=== PATIENT | male | born 1975 | race Caucasian/White ===

== ENCOUNTER 2017-08-16 17:00 | Emergency (ER) | payer SELFPAY ==
[~2017-08-16] VITALS: Ht 172.7 cm; Wt 84.0 kg
[~2017-08-16 17:00] MED LIST: ALBUTEROL17 GM IH; FLEXERIL10 MG PO; HYDROCODON-ACE1 EAC7 PO; NAPROSYN500 MG PO; NO HOME MEDS
[2017-08-16] MEDS ORDERED: KEFLEX500 MG PO (17:36)
[2017-08-16 17:47] VITALS: BP 168/99
== END 2017-08-16 17:49 ==
LOC: EME 17:00
PROC: 0HQ1XZZ Repair Face Skin, External Approach (ICD-10-PCS; principal; 2017-08-16)
DX: S01.81XA Laceration without foreign body of other part of head, initial encounter (principal); Y09 Assault by unspecified means; Z02.89 Encounter for other administrative examinations; F17.200 Nicotine dependence, unspecified, uncomplicated
CPT/HCPCS: 99281; 99284